=== PATIENT | male | born 1990 | race Caucasian/White ===

== ENCOUNTER 2021-04-09 13:03 | Emergency (ER) | payer OTHER, SELFPAY ==
--- NOTE | 2021-04-09 14:09 | ED.EAR ---
HPI - Ear Problem General Chief complaint: Ear Stated complaint: cough Time Seen by Provider: 04/09/21 13:55 Source: patient and RN notes reviewed Mode of arrival: ambulatory Limitations: no limitations History of Present Illness HPI Narrative: Patient presents today complaining of left ear pain, decreased hearing, and blood discharge from the ear. This ear pain started 3 days ago after flying in from [place] 2 days prior. Last night the pain worsened. Today he has been flushing his ear out with water and using a Q-tip. This morning he started getting blood discharge from his ear and his told him it looks like his ear canal was swelling shut. He called his PCPs office, who subsequently called him in a prescription for some Augmentin. He has not started it yet. Patient tested Covid positive a few days ago. MD Complaint: ear pain, ear discharge and decreased hearing Related Data Home Medications Medication Instructions Recorded Confirmed hydrochlorothiazide 04/09/21 losartan 04/09/21 Allergies Allergy/AdvReac Type Severity Reaction Status Date / Time No Known Allergies Allergy Verified 04/09/21 13:11 Review of Systems Review of Systems: CONSTITUTIONAL: Denies body aches, fever, chills, or sweats. EYES: Denies visual changes, redness, or discharge. ENT: Denies rhinorrhea, congestion, sore throat. + Left ear pain, bloody drainage, decreased hearing CARDIOVASCULAR: Denies chest pain, palpitations, or edema. RESPIRATORY: Denies cough or dyspnea. GASTROINTESTINAL: Denies abdominal pain, nausea, vomiting, or diarrhea. GENITOURINARY: Denies dysuria or hematuria. SKIN: Denies rash, itching, or wounds. MUSCULOSKELETAL: Denies back pain, joint pain, or myalgia. NEUROLOGIC: Denies headache, numbness, tingling, or weakness. PSYCH: Denies depression or anxiety. PMFSH Social History Social History Smoking status: Never smoker Alcohol intake: current Comments At time of signature, I have reviewed and agree with nursing past medical, surgical, social and family history unless otherwise noted. Please see nursing chart for further information. There is no relevant family history pertinent to the presenting complaint Exam Narrative: GENERAL: Well-appearing, well-nourished, and in no acute distress. HEAD: Normocephalic, atraumatic. EYES: EOMI. No redness or drainage. Conjunctivae normal. ENT: Mucous membranes pink and moist. Nares clear. No rhinorrhea. Left ear: Moderate amount of blood in the ear canal. No movement tenderness. No swelling in the ear canal. Presumed rupture, unable to visualize TM. NECK: Normal AROM. Supple. No lymphadenopathy. CHEST: No respiratory distress. EXTREMITIES: Normal range of motion. No edema. SKIN: Warm, dry, no rash. Capillary refill normal. Normal skin turgor. NEURO: No focal deficits. Alert and oriented x3. Gait steady. PSYCH: Normal affect. No signs of depression or anxiety. Course Vital Signs Vital signs: Vital Signs Temperature 97.6 F 04/09/21 14:25 Pulse Rate 77 04/09/21 14:25 Respiratory Rate 16 04/09/21 14:25 Blood Pressure 147/108 H 04/09/21 14:25 Pulse Oximetry 96 04/09/21 14:25 Temperature 97.6 F 04/09/21 14:25 Pulse Rate 77 04/09/21 14:25 Respiratory Rate 16 04/09/21 14:25 Blood Pressure 147/108 H 04/09/21 14:25 Pulse Oximetry 96 04/09/21 14:25 Reviewed. Pt has been instructed to follow up with his PCP regarding his elevated blood pressure today. Medical Decision Making Differential Diagnosis Differential Diagnosis: Otitis media, otitis externa, ruptured TM, serous otitis, cerumen impaction Vital Signs Vital Signs: Vital Signs Temperature 97.6 F 04/09/21 14:25 Pulse Rate 77 04/09/21 14:25 Respiratory Rate 16 04/09/21 14:25 Blood Pressure 147/108 H 04/09/21 14:25 Pulse Oximetry 96 04/09/21 14:25 Temperature 97.6 F 04/09/21 14:25
[2021-04-09 14:25] VITALS: BP 147/108; PULSE 77; RESP 16; TEMP 36.4; O2SAT 96
== END 2021-04-09 14:25 | disposition home or self-care (01) ==
PROVIDERS: Emergency Provider Nurse Practitioner
DX: H72.92 Unspecified perforation of tympanic membrane, left ear (principal); I10 Essential (primary) hypertension
CPT/HCPCS: 99211; 99213; G0463

== ENCOUNTER 2021-04-10 13:11 | Emergency (ER) | payer OTHER, SELFPAY ==
[2021-04-10 13:19] VITALS: BP 178/89; PULSE 72; RESP 20; TEMP 38.1; O2SAT 100
[2021-04-10] MEDS: HYDROcodone/acetaminophen (*CRX) 5-325 MG TABLET 1 TAB PO (15:34)
--- NOTE | 2021-04-10 16:13 | ED.EAR ---
HPI - Ear Problem General Chief complaint: Ear Stated complaint: LEFT EAR/COVID+ Time Seen by Provider: 04/10/21 14:39 History of Present Illness HPI Narrative: Patient is a 30-year-old male who presents ER with left ear pain. Known Covid positive. He was flying back from [place] when he had his left eardrum rupture. He has been on Augmentin but still continues to have pain despite taking Tylenol. He continues to have some drainage from his ear. He also continues to have fever. Related Data Home Medications Medication Instructions Recorded Confirmed hydrochlorothiazide 04/09/21 losartan 04/09/21 Allergies Allergy/AdvReac Type Severity Reaction Status Date / Time No Known Allergies Allergy Verified 04/09/21 13:11 Review of Systems Review of Systems: All systems reviewed & are unremarkable except as noted in HPI and below Constitutional: Constitutional: Denies chills, Reports fever(s) and Denies weakness ENT: Denies nasal congestion and Denies sore throat Comments: Left ear pain with drainage and decreased hearing. Neurologic: Denies vertigo and Denies focal weakness PMFSH Social History Social History Smoking status: Never smoker Alcohol intake: current Gender identity (if verbalized by the patient): Male Exam Narrative: GENERAL: Well-appearing, well-nourished, and in no acute distress. HEAD: Normocephalic, atraumatic. ENT: Left ear with drainage, ear canal swollen unable to go deep enough to visualize tympanic membrane. It does seem like it is ruptured. NEURO: No focal deficits. Alert and oriented x3. PSYCH: Normal mood and affect. Course Course Emergency Course: Pain. Ciprodex to help with infection. Continue oral antibiotics. Vital Signs Vital signs: Vital Signs Temperature 100.5 F H 04/10/21 13:19 Pulse Rate 72 04/10/21 13:19 Respiratory Rate 20 04/10/21 13:19 Blood Pressure 178/89 H 04/10/21 13:19 Pulse Oximetry 100 04/10/21 13:19 Temperature 100.5 F H 04/10/21 13:19 Pulse Rate 72 04/10/21 13:19 Respiratory Rate 20 04/10/21 13:19 Blood Pressure 178/89 H 04/10/21 13:19 Pulse Oximetry 100 04/10/21 13:19 Medical Decision Making Vital Signs Vital Signs: Vital Signs Temperature 100.5 F H 04/10/21 13:19 Pulse Rate 72 04/10/21 13:19 Respiratory Rate 20 04/10/21 13:19 Blood Pressure 178/89 H 04/10/21 13:19 Pulse Oximetry 100 04/10/21 13:19 Temperature 100.5 F H 04/10/21 13:19 Pulse Rate 72 04/10/21 13:19 Respiratory Rate 20 04/10/21 13:19 Blood Pressure 178/89 H 04/10/21 13:19 Pulse Oximetry 100 04/10/21 13:19 Discharge Plan Discharge Clinical Impression: Otitis externa Patient Disposition: Home, Self-Care Condition: Stable Instructions: Antibiotic Form, Swimmer's Ear (ED) Additional Instructions: Return the ER if you have increasing pain, you have worsening drainage, you have additional concerns. Is recommend you follow-up with an ENT when you are no longer Covid positive for further evaluation of eardrum. Continue to take your oral antibiotics in addition to these eardrops. Prescriptions: New hydrocodone-acetaminophen 5-325 mg tablet 1 tablet PO Q6H PRN (Reason: pain) Qty: 14 RF: 0 ciprofloxacin-dexamethasone [Ciprodex] 0.3-0.1 % drops,suspension 4 drp LEFT EAR Q12H 7 Days Qty: 7.5 RF: 0 No Action hydrochlorothiazide 25 mg tablet RF: 0 losartan 100 mg tablet RF: 0 Follow-up/Referrals: Oleksandr Robbins MD [Physician] - 1 Week PHYSICIAN,[facility] [Primary Care Provider] - Noe Caceres DO [Physician] - 1 Week
== END 2021-04-10 16:24 | disposition home or self-care (01) ==
PROVIDERS: Emergency Provider Emergency Medicine
DX: H60.90 Unspecified otitis externa, unspecified ear (principal); H72.92 Unspecified perforation of tympanic membrane, left ear; U07.1 COVID-19
CPT/HCPCS: 99283; A9270